=== PATIENT | female | born 1985 | race American Indian/Alaskan Native ===

== ENCOUNTER 2017-01-10 13:35 | Emergency (ER) | payer MEDICAID, OTHER ==
[~2017-01-10 13:35] MED LIST: HYDROmorphone 1 MG/ML Syringe IVPUSH ONE; Iopamidol 612 MG/ML 100 ML Bottle IVPUSH ONE
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
[2017-01-10] MEDS ORDERED: HYDROmorphone 1 MG/ML Syringe ONE (14:01)
[2017-01-10] MEDS ORDERED: HYDROmorphone 1 MG/ML Syringe IVPUSH ONE (14:01)
[2017-01-10 14:05] LABS: ACETAMINOPHEN < 10; CHLORIDE,CL 107 mmol/L (101-111); SODIUM,NA 142 mmol/L (135-145)
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
[2017-01-10 15:39] VITALS: BP 121/81
== END 2017-01-10 15:43 | disposition home or self-care (01) ==
LOC: DL.ED 13:35
DX: T74.21XA Adult sexual abuse, confirmed, initial encounter (principal); Z90.710 Acquired absence of both cervix and uterus; Z88.0 Allergy status to penicillin; Z88.8 Allergy status to other drugs, medicaments and biological substances; Z91.040 Latex allergy status; Z88.6 Allergy status to analgesic agent
CPT/HCPCS: 36415; 70450; 70486; 71260; 72125; 73130; 73630; 74177; 80053; 80305; 81001; 83735; 85025; 96374; 96375; 99291; G0480; J1170; Q9967; 99284